=== PATIENT | male | born 1975 | race Caucasian/White ===

== ENCOUNTER 2023-02-23 13:56 | Emergency (ER) | payer OTHER ==
[~2023-02-23 13:56] MED LIST: BACTRIM DS 8001 TA1 PO; CLINDAMYCIN HC300 MG PO; HYDROCODONE BIT1 T11 PO; KEFLEX500 MG PO; SALETO800 MG PO
[2023-02-23 15:01] LABS: BASO # 0.1 10*3/uL (0.0-0.1); BASO % 0.5 % (0.0-1.0); EOS # 0.1 10*3/uL (0.0-0.4); EOS % 1.3 % (1.0-4.0); HEMATOCRIT 47.5 % (42.0-52.0); LYMPH # 3.3 10*3/uL (1.3-4.4); LYMPH % 32.9 % (27.0-41.0); MEAN CELL VOLUME 85.6 fl (80.0-94.0); MEAN CORPUSCULAR HGB 29.7 pg (27.0-31.0); MEAN CORPUSCULAR HGB CONC 34.7 g/dl (33.0-37.0); MEAN PLATELET VOLUME 9.7 fl (9.6-12.3); MONO # 0.5 10*3/uL (0.1-1.0); MONO % 4.8 % (3.0-9.0); NEUT % 60.1 % (47.0-73.0); PLATELET COUNT AUTOMATED 232 10*3/uL (130-400); RED BLOOD COUNT 5.55 10*6/uL (4.50-5.90); RED CELL DISTRI WIDTH 12.4 % (0-14.5); WHITE BLOOD COUNT 9.9 10*3/uL (4.8-10.8)
[2023-02-23 15:32] LABS: ALKALINE PHOSPHATASE 82 U/L (46-116); BUN 12 mg/dl (9-23); CHLORIDE 103 mmol/L (98-107); CPK 240 U/L (34-171); POTASSIUM 4.1 mmol/L (3.4-5.1); SGPT/ALT 36 U/L (10-49); TOTAL PROTEIN 7.9 gm/dL (6.0-8.0)
[2023-02-23] MEDS ORDERED: METFORMIN HYDR500 MG PO (16:40)
== END 2023-02-23 16:47 | disposition home or self-care (01) ==
LOC: ED 13:56
PROVIDERS: Internal Medicine
DX: E11.9 Type 2 diabetes mellitus without complications (principal); R55 Syncope and collapse; R25.2 Cramp and spasm; Z88.7 Allergy status to serum and vaccine; Z79.899 Other long term (current) drug therapy; Z79.2 Long term (current) use of antibiotics

== ENCOUNTER → 2023-05-30 | Outpatient (CLI) | payer OTHER ==
[~2023-05-30] MED LIST changes: +METFORMIN HYDR500 MG PO
== END | disposition home or self-care (01) ==
LOC: CARD 02:22
PROVIDERS: ATTEND Internal Medicine
DX: I51.7 Cardiomegaly (principal); R55 Syncope and collapse

== ENCOUNTER 2023-06-22 01:10 | Emergency (ER) | payer OTHER ==
[2023-06-22 01:36] LABS: BASO # 0.1 10*3/uL (0.0-0.1); BASO % 0.6 % (0.0-1.0); EOS # 0.3 10*3/uL (0.0-0.4); EOS % 2.1 % (1.0-4.0); LYMPH # 3.4 10*3/uL (1.3-4.4); LYMPH % 25.1 % (27.0-41.0); MEAN CELL VOLUME 86.2 fl (80.0-94.0); MEAN CORPUSCULAR HGB CONC 33.6 g/dl (33.0-37.0); MEAN PLATELET VOLUME 9.6 fl (9.6-12.3); MONO # 0.9 10*3/uL (0.1-1.0); MONO % 6.8 % (3.0-9.0); NEUT # 8.7 10*3/uL (2.3-7.9); NEUT % 64.5 % (47.0-73.0); PLATELET COUNT AUTOMATED 228 10*3/uL (130-400); RED CELL DISTRI WIDTH 12.8 % (0-14.5); WHITE BLOOD COUNT 13.5 10*3/uL (4.8-10.8)
[2023-06-22 02:05] LABS: ALKALINE PHOSPHATASE 87 U/L (46-116); BUN 11 mg/dl (9-23); CHLORIDE 105 mmol/L (98-107); LIPASE 56 U/L (12-53); POTASSIUM 3.7 mmol/L (3.4-5.1); SGPT/ALT 39 U/L (5-49); TOTAL PROTEIN 7.7 gm/dL (6.0-8.0)
== END 2023-06-22 04:50 | disposition home or self-care (01) ==
LOC: ED 01:10
PROVIDERS: Internal Medicine
DX: K57.92 Diverticulitis of intestine, part unspecified, without perforation or abscess without bleeding (principal); D72.89 Other specified disorders of white blood cells; E80.7 Disorder of bilirubin metabolism, unspecified; E11.9 Type 2 diabetes mellitus without complications; Z88.7 Allergy status to serum and vaccine; Z79.899 Other long term (current) drug therapy; Z79.2 Long term (current) use of antibiotics

== ENCOUNTER 2024-08-09 15:37 | Emergency (ER) | payer OTHER ==
[~2024-08-09] VITALS: Ht 182.8 cm; Wt 122.5 kg
[2024-08-09] MEDS ORDERED: MELOXICAM15 MG PO (17:25)
[2024-08-09] MEDS ORDERED: CYCLOBENZAPRINE10 MG PO (17:25)
== END 2024-08-09 18:49 | disposition home or self-care (01) ==
LOC: ED 15:37
DX: S16.1XXA Strain of muscle, fascia and tendon at neck level, initial encounter (principal); S39.012A Strain of muscle, fascia and tendon of lower back, initial encounter; E11.9 Type 2 diabetes mellitus without complications; Z88.7 Allergy status to serum and vaccine; Z88.8 Allergy status to other drugs, medicaments and biological substances; Z98.890 Other specified postprocedural states; V89.2XXA Person injured in unspecified motor-vehicle accident, traffic, initial encounter; Y93.89 Activity, other specified; Y92.89 Other specified places as the place of occurrence of the external cause; Y99.8 Other external cause status